=== PATIENT | female | born 1975 | race Caucasian/White ===

== ENCOUNTER 2016-07-07 12:18 | Day surgery (SDC) | payer BC, OTHER ==
[2016-07-07 12:48] VITALS: BP 126/77; PULSE 66; RESP 16; TEMP 98
[2016-07-07] MEDS ORDERED: ALPRAZolam 0.5 MG TAB PO STA (13:04)
--- NOTE | 2016-07-07 15:20 | US ---
EXAMINATION TYPE: US FNA thyroid DATE OF EXAM: 07/07/2016 1:47 PM COMPARISON: Thyroid ultrasound 27 August 2014 HISTORY: Thyroid nodule. Maximal barrier technique was utilized. After informed consent, skin overlying the lesion was locali zed with ultrasound and the overlying skin prepped and draped. Ultrasound was utilized using sterile technique. Lidocaine was used for local anesthesia. Five passes with a 25-gauge needle were made int o the left-sided nodule and aspirated specimen was submitted to cytology. Following the procedure he mostasis achieved. No immediate complication. The patient discharged in stable condition. IMPRESSION: STATUS POST ULTRASOUND GUIDED FINE NEEDLE ASPIRATION OF THYROID NODULE, PATHOLOGY IS PEND ING. THIS PROCEDURE WAS PERFORMED BY THE UNDERSIGNED.
== END 2016-07-07 14:00 ==
LOC: RADPROMAIN 12:18
PROVIDERS: ATTEND Otolaryngology Plastic Surgery within the Head & Neck
DX: E04.1 Nontoxic single thyroid nodule (principal)
CPT/HCPCS: 10022; 76942; 88173; 88305

== ENCOUNTER 2020-07-23 14:45 | Emergency (ER) | payer BC ==
--- NOTE | 2020-07-23 15:53 | XR ---
EXAMINATION TYPE: XR finger LT DATE OF EXAM: 07/23/2020 CLINICAL HISTORY: pain left 2nd digit. TECHNIQUE: 3 views of the left 2nd digit are submitted. COMPARISON: None FINDINGS: Hairline fracture subungual tuft is difficult to exclude. Joint spaces are well-preserved. Correlate for soft tissue injury. IMPRESSION: Hairline fracture subungual tuft is difficult to exclude.
--- NOTE | 2020-07-23 16:23 | ED ---
Animal Bite HPI - General Chief Complaint: Animal Bite Stated Complaint: Dog bite Time Seen by Provider: 07/23/20 15:02 Source: patient, family Mode of arrival: ambulatory - History of Present Illness Initial Comments: Patient is a 44-year-old female presenting to the emergency department for a dog bite on her left index finger. Patient states her own dog bit her approximately 6 days ago. She states she went to urgent care or the next day, was started on antibiotics. They did do some Steri-Strips over her wound. They told her to keep it covered and leave the Steri-Strips in place, they also told her not to get the wound wet. Patient states she is currently on day 7 of Augmentin and was concerned that there might be an infection in her wound. She denies any fever or chills, no nausea or vomiting. She denies any significant pain in her left index finger. She states she also got bit on her left hand as well but that is healing well. She has no further complaints at this time. Upon arrival to the ER, her vitals are stable. - Related Data Previous Rx's Medication Instructions Recorded Amoxicillin/Potassium Clav 1 tab PO BID 4 Days #8 tab 07/23/20 [Augmentin 875-125 Tablet] Allergies Allergy/AdvReac Type Severity Reaction Status Date / Time metformin Allergy Rash/Hives Verified 06/11/16 09:39 Review of Systems ROS Statement: Those systems with pertinent positive or pertinent negative responses have been documented in the HPI. ROS Other: All systems not noted in ROS Statement are negative. Past Medical History Past Medical History: Thyroid Disorder Additional Past Medical History / Comment(s): polycystic ovarian disease History of Any Multi-Drug Resistant Organisms: None Reported Additional Past Surgical History / Comment(s): previous thyroid biopsy rt nodule - neg for ca,. rt foot surgery Past Anesthesia/Blood Transfusion Reactions: No Reported Reaction Past Psychological History: No Psychological Hx Reported Smoking Status: Current every day smoker Past Alcohol Use History: Rare Past Drug Use History: None Reported - Past Family History Brother(s) Family Medical History: Cancer Additional Family Medical History / Comment(s): Hodgkins Lymphoma General Exam - General Exam Comments Initial Comments: GENERAL: Patient is well-developed and well-nourished. Patient is nontoxic and in no acute distress. HEAD: Atraumatic, normocephalic. EYES: Pupils equal round and reactive to light, extraocular movements intact, sclera anicteric, conjunctiva are normal. Eyelids were unremarkable. ENT: TMs normal, nares patent, oropharynx clear without exudates. Moist mucous membranes. NECK: Normal range of motion, supple without lymphadenopathy or JVD. LUNGS: Unlabored respirations. Breath sounds clear to auscultation bilaterally and e qual. No wheezes rales or rhonchi. HEART: Regular rate and rhythm without murmurs, rubs or gallops. ABDOMEN: Soft, nontender, normoactive bowel sounds. No guarding, no rebound. No masses appreciated. : Deferred MUSCULOSKELETAL: She is full range of motion of all 5 of her fingers, very slight decrease in active flexion of her left index finger secondary to an open wound on the joint. Normal extremities with adequate strength and normal range of motion, no pitting or edema. No clubbing or cyanosis. NEUROLOGICAL: Patient is alert and oriented x 3. Motor and sensory are also intact. Cranial nerves II through XII grossly intact. Symmetrical smile. Normal speech, normal gait. PSYCH: Normal mood, normal affect. SKIN: Warm, Dry, normal turgor. Patient has a healing dog bite wound on the dorsal aspect of her left hand, this is healing well scabbed, no signs of infection. She also has a wound on the dorsal aspect of her left index finger near the IP joint. Is having some mild erythema surrounding, no active drainage. She denies any warmth to the area, no pain with palpation. This wound is still slightly opened as there was a gaping injury to it. Course Vital Signs 07/23/20 07/23/20 14:58 16:27 Temperature 98.7 F 99 F Pulse Rate 85 79 Respiratory 20 18 Rate Blood Pressure 173/98 128/88 O2 Sat by Pulse 96 Oximetry Medical Decision Making - Medical Decision Making Patient is a 44-year-old female here for recheck of a dog bite wound on her left index finger that she sustained 6 days ago. She is currently on day 5 of Augmentin. Patient was seen in urgent care after the initial injury, they did not do an x-ray. I did do an x-ray today, shows a hairline fracture of the sublingual tough however she has no injury to this location. I do not believe this is an acute injury on xray. Patient's wounds have been healing well. I do recommend continuing with Augmentin for a total 14 days. I will give her prescription for the remaining days. I recommended hand washing is mild soap and water a few times daily. She can keep wound open when not working. Patient is stable for discharge. Patient is in agreement with this plan of care. Return parameters were discussed with the patient and they verbalized understanding. Case discussed with Dr. garcia. Disposition Clinical Impression: Dog bite of index finger Disposition: HOME SELF-CARE Instructions (If sedation given, give patient instructions): Animal Bite (ED) Additional Instructions: Please return to the Emergency Department if symptoms worsen or any other concerns. Continue to take antibiotic as prescribed. Take for a total of 2 weeks. Please follow-up with hand doctor as discussed. Prescriptions: Amoxicillin/Potassium Clav [Augmentin 875-125 Tablet] 1 tab PO BID 4 Days #8 tab Is patient prescribed a controlled substance at d/c from ED?: No Referrals: Dominik Cotton MD [Primary Care Provider] - 1-2 days Sahil Joy DO [Doctor of Osteopathic Medicine] - 1-2 days
[2020-07-23 16:29] VITALS: BP 128/88; PULSE 79; RESP 18; TEMP 99
== END 2020-07-23 16:27 | disposition home or self-care (01) ==
LOC: EC 14:45
DX: S61.251A Open bite of left index finger without damage to nail, initial encounter (principal); F17.200 Nicotine dependence, unspecified, uncomplicated; Z88.8 Allergy status to other drugs, medicaments and biological substances; W54.0XXA Bitten by dog, initial encounter
CPT/HCPCS: 99283